=== PATIENT | male | born 1960 | race Caucasian/White ===

== ENCOUNTER 2017-05-12 06:34 | Inpatient (IN) ==
[~2017-05-12 06:34] MED LIST: DEXAMETHASONE 4 MG/ML INJECTION IVP ONE; FAMOTIDINE PB 20 MG/50 ML BAG IV ONE; LIDOCAINE 1% (10mg/ml) 2mL INJ PF SDV ID ONE; METOCLOPRAMIDE 10mg/2ml INJECTION IVP ONE; ONDANSETRON 4 MG/2 ML INJECTION IVP ONE; TRANEXAMIC ACID 1,000 MG in NS 100 ML IV ONE
[2017-05-12 06:49] VITALS: BMI 30.9
[2017-05-12] MEDS ORDERED: TRANEXAMIC ACID 1,000 MG in NS 100 ML IV ONE (07:00)
[2017-05-12] MEDS ORDERED: CEFAZOLIN 1 G INJECTION IVP ONE (07:07)
[2017-05-12] MEDS ORDERED: NOZIN NASAL SWAB NAS ONE ×3 (07:19→12:04)
[2017-05-12] MEDS ORDERED: VANCOMYCIN 1,000 MG INJECTION ONE (07:52)
[2017-05-12] MEDS: LR 1,000 ML IV SCH ×2 (07:57→09:25)
[2017-05-12] MEDS ORDERED: EPINEPHrine PF 0.25 MG, BUPIVACAINE 0.25% PF 30 ML, MORPHINE SULFATE 15 MG, KETOROLAC I... OPSITE ONE (08:00)
--- NOTE | 2017-05-12 08:45 | Anesthesia Preoperative Report ---
Anesthesia Preoperative Record - Date and Time Date: 05/12/17 Preoperative Diagnosis: Lt TKA M17.12 Proposed Procedure: left TKA NPO Since Date: 05/11/17 NPO Since Time: 23:00 Allergies/Adverse Reactions: Allergies Allergy/AdvReac Type Severity Reaction Status Date / Time oxycodone AdvReac Mild Nausea Verified 05/12/17 07:08 - Vital Signs Vital Signs: Temperature 98.3 F 05/12/17 06:49 Pulse Rate 60 05/12/17 07:10 Respiratory Rate 18 05/12/17 06:49 Blood Pressure 155/95 H 05/12/17 06:49 Pulse Oximetry 98 05/12/17 06:49 Height and Weight: Height 5 ft 10 in Weight 97.8 kg Body Mass Index 30.9 - Medications Inpatient Medications: Current Medications Lactated Ringer's (Lactated Ringers) 1,000 mls @ 50 mls/hr IV .Q20H MELLISA Last Admin: 05/12/17 07:57 Dose: 50 mls/hr Isopropyl Alcohol (Nozin Nasal Swab) 1 each IDALMIS O ONE Stop: 05/12/17 11:09 Isopropyl Alcohol (Nozin Nasal Swab) 1 each IDALMIS 0600,1400,2200 MELLISA Sodium Chloride (Iv Flush) 10 - 80 ml IV PRN PRN PRN Reason: Flushing Home Medications: Home Medications Medication Instructions Recorded Confirmed Type Lisinopril 5 mg PO HS #0 05/09/14 05/12/17 History Ibuprofen 200 mg PO Q4H PRN #0 tab 02/12/15 05/12/17 History Lipitor (atorvastatin) 10 mg tablet 5 mg PO HS tab 04/01/17 05/12/17 History Meloxicam [Mobic] 15 mg PO HS 04/01/17 05/11/17 History Acetaminophen [Tylenol] 1 - 2 tab PO Q5HR PRN 05/11/17 05/12/17 History Zolpidem Tartrate [Ambien] 5 mg PO DAILY 05/11/17 05/12/17 History Is Patient on Beta Manuela?: No - Medical History Respiratory: DENIES: Sleep Apnea (high risk STOP/BANG; declines sleep study) Cardiovascular: Reports: Hypertension, High Cholesterol Gastrointestional: Reports: Other (currently elevated liver enzymes, neg hep screen) Other History: DENIES: Anesthesia Reactions - Surgical History GI Surgery/Treatments: Reports: Colonoscopy (polypectomy), Other (soft tissue cystectomy from chest) Musculoskeletal Surgery/Tx: Reports: Knee Arthroscopy (right and left) Anesthesia Reactions: None Hx Family Anesthesia Reaction: No - Social History Smoking Status: Never smoker Hx Chewing Tobacco Use: No Second Hand Exposure: No Substance Use Type: does not use - Pertinent Findings EKG: Sinus Rhythm, First Degree AV Block - Physical Exam Respiratory Exam: Present: lungs clear, bilateral breath sounds equal Cardiovascular Exam: Present: regular rate and rhythm - Airway Assessment Mallampati Score: II TMD: 3 Fingerbreadths Neck Extension: good Overall Assessment: no airway concerns - ASA ASA Score: 2 - Plan Anesthesia: General TIVA, Neuroaxial - Discussion Discussion: Discussed risks/options/alternatives of anesthesia and questions answered. Patient consents. Nursing pain assessment noted. Present for Discussion: spouse Attestation Statement: Prior to the delivery of any anesthetic medication, I examined the patient, developed the plan, obtained the patient's consent and discussed the risk and benefits of the procedure with the patient/guardian. - Additional Information Seen by Anesthesia: Yes
[2017-05-12] MEDS ORDERED: PROPOFOL 500 MG/50 ML VIAL IV ONE (08:52)
[2017-05-12] MEDS ORDERED: VANCOMYCIN 1,000 MG INJECTION IAR ONE (09:11)
[2017-05-12] MEDS ORDERED: MIDAZOLAM 2mg/2ml INJECTION ONE (09:32)
[2017-05-12] MEDS ORDERED: SALINE FLUSH 10ml SYRINGE IV PRN (11:08)
--- NOTE | 2017-05-12 11:09 | Operative Note ---
- Procedure Preoperative Diagnosis: Left knee primary degenerative joint disease Postoperative Diagnosis: Same as preoperative diagnosis. Surgeon: Alpa Boone MD Online Merchandising Coordinator: Dwight Vo Complications: None. Anesthesia: Spinal. Estimated Blood Loss: See Anesthesia Record. Fluids: Please see Anesthesia Record. Desciption of Procedure: Mr. Stone and his left knee were identified and marked in the preoperative holding area. He was brought back to the operating suite after a saphenous nerve block was placed in the preoperative holding area. Spinal anesthetic was administered and he was placed supine on the operating table. The left lower extremity was prepped and draped in my normal sterile fashion. Timeout was performed. The Qwiki robot was used during the surgery. He has a fixed varus deformity. A standard anterior midline incision followed by medial parapatellar arthrotomy was performed. Anterior fat pad and meniscus were removed. The patella was resurfaced to a size 32. Tibial and femoral arrays were placed both within the original incision. Checkpoints were then placed both in the femur and the tibia. The bone was then registered with the Qwiki robot. Osteophytes were removed and gaps were captured both 90 and 0 with correction. Robotic software was used to manipulate components to obtain 19 mm gaps throughout. The Qwiki robotic arm was then used to assist with the bone cuts. Posterior osteophytes and remaining meniscus were removed. Trial components were placed. We used a 5 femur and a 6 tibia with a 9 mm spacer. He remained tight medially even after removal of osteophytes so I added 1 more degree of varus to the tibia as well as 1 of posterior slope. After which he tracked well and was well balanced throughout range of motion. The tibia was then stamped at the proper rotation and then all components were press-fit into position. The knee was ranged one more time to ensure good stability, balance and patellar tracking. The knee was thoroughly irrigated with normal saline. 1 g of vancomycin powder was then placed into the knee joint. The capsulotomy was then closed with #1 Vicryl. I then left my social media assistant to close the subcutaneous tissue with 2-0 Vicryl. Running 4-0 Monocryl will be used in the subcuticular layer. Dermabond will be used on the skin followed by sterile dressing. After drapes are removed patient will be taken to recovery room under the care of anesthesia.
--- NOTE | 2017-05-12 12:00 | XRay Report ---
EXAM: XR knee LT 2V DATE: 05/12/2017 11:32 AM Encounter: Initial INDICATION: postoperative image COMPARISON: Left knee MRI 01/20/2017, left knee radiographs 01/15/2017 TECHNIQUE: AP and lateral views of the knee were obtained. FINDINGS: Bony mineralization is normal. Postoperative changes of left total knee arthroplasty. The hardware components appear appropriately aligned without evidence of acute hardware complication. No periprosthetic fracture seen. No significant joint effusion appreciated allowing for artifact from the external stabilization material. IMPRESSION: Postoperative changes of left total knee arthroplasty without evidence of acute hardware complication or periprosthetic osseous abnormality. .
[2017-05-12] MEDS ORDERED: Oxycodone *IR* 5 MG TABLET PO PRN (12:04)
[2017-05-12] MEDS ORDERED: DiphenhydrAMINE 50 MG/ML INJECTION IVP PRN (12:04)
[2017-05-12] MEDS ORDERED: ONDANSETRON 4 MG/2 ML INJECTION IVP PRN (12:04)
[2017-05-12] MEDS ORDERED: LORazepam 1 MG TABLET PO PRN (12:04)
[2017-05-12] MEDS ORDERED: DiphenhydrAMINE 25 MG CAPSULE PO PRN (12:04)
[2017-05-12] MEDS: NS 1,000 ML IV SCH (12:34)
--- NOTE | 2017-05-12 12:54 | Consult Note ---
<Ashtyn Wheat V - Last Filed: 05/12/17 13:23> Consult Information - Data of Consult Consult date: 05/12/17 Requesting Physician: Veto Boone MD Primary Care Provider: Hattie Leonard MD Family Provider: Hattie Leonard MD - Consult Narrative Reason for consult: Medical magement History of present illness: Mr Stone is seen today in consultation following scheduled left knee placement of care of Dr. Boone. She tolerated the procedure well without any difficulty. Post-operatively patient's reports to Dr. Boone concern for alcohol use and alcohol withdrawal. Also reports that patient's sister last evening and she did not tell him yet. Zen is seen today for initial consultation postoperatively. He is alert and oriented, his is at the bedside. She admits to being a daily alcohol user, however, reports he has not had any alcohol intake for the past 2 weeks preoperatively. He does report that he did have shaking states that he is unsure. He wants to return to drinking as he is already "climbed the hill". He is currently not having pain post-op. Did discuss one-on-one with patient's . She reports patient has used alcohol since age of 12. For the past 15 years he has been a daily alcohol user of approximately 15 "tall boys" a day. He does hold a full-time job at [employer] in [place]. is unsure if he awakes in the morning and drinks alcohol as he wakes up early in drops to work. She does report she has chronic insomnia [facility] Patient Stated Medical History Hypertension GERD Elevated LFTs Hypercholesterolemia Daily alcohol use Surgical History: LT KNEE 2007. RT KNEE 2013 Family History: Family History Mother Hypertension Father Heart defect Heart attack - Social History Smoking status: Never smoker Alcohol intake: current (alcohol use since age 12. Drinks approximately 15 " tall boys" a day) Alcohol intake frequency: 3 or more drinks per day Last drink: days (ago) Household members: spouse Does patient use chewing tobacco?: No Social history: PCP Dr Hattie Leonard- [facility] ([place]) Review of Systems All systems PM: 10-point ROS was reviewed, no additional remarkable complaints except Review of systems: Currently denies review of systems Medications Home Medications Medication Instructions Recorded Confirmed Type Lisinopril 5 mg PO HS #0 05/09/14 05/12/17 History Ibuprofen 200 mg PO Q4H PRN #0 tab 02/12/15 05/12/17 History Lipitor (atorvastatin) 10 mg tablet 5 mg PO HS tab 04/01/17 05/12/17 History Meloxicam [Mobic] 15 mg PO HS 04/01/17 05/11/17 History Acetaminophen [Tylenol] 1 - 2 tab PO Q5HR PRN 05/11/17 05/12/17 History Zolpidem Tartrate [Ambien] 5 mg PO DAILY 05/11/17 05/12/17 History Allergies Allergy/AdvReac Type Severity Reaction Status Date / Time acetaminophen [From Lortab] AdvReac Nausea and Verified 05/12/17 08:52 Vomiting hydrocodone [From Lortab] AdvReac Nausea and Verified 05/12/17 08:52 Vomiting oxycodone [From Percocet] AdvReac Nausea and Verified 05/12/17 08:52 Vomiting Exam Vital Signs: Temperature 96 F L 05/12/17 12:05 Pulse Rate 55 L 05/12/17 12:35 Respiratory Rate 18 05/12/17 12:05 Blood Pressure 155/85 H 05/12/17 12:35 Pulse Oximetry 100 05/12/17 12:35 Height/Weight/BMI: Height 1.78 m Weight 97.8 kg Body Mass Index 30.9 - Constitutional Present: no acute distress, well nourished, well developed - Routine HEENT Exam Eye: Present: EOMI ENT: Present: mucous membranes moist, dentition normal - Routine Respiratory Exam Present: CTA bilaterally. Absent: wheezes - Routine Cardiovascular Exam Present: RRR, S1, S2. Absent: murmur - Routine Abdominal Exam Present: soft, normoactive bowel sounds, non distended. Absent: tenderness - Routine Extremities Exam Present: pulses intact Comments: Left knee- post-op with polar pack intact - Routine Back/Spine/Pelvis Exam Back/Spine: Present: full ROM - Routine Skin Exam Present: dry, warm - Routine Neurological Exam Present: alert, oriented X3, CN II-XII intact - Routine Psychiatric Exam Present: normal affect Assessment and Plan (1) S/P knee replacement Current visit: Yes Status: Acute Assessment and Plan: Impression S/P Left knee replacement Hypertension Daily Alcohol use Hypercholesteremia Concern for situational depression given recent family Plan Post-op and orthopedic orders as per Dr Boone PT/OT for post-op strengthening Patient reports he has not had a alcohol drink for 2 weeks. He does report having some shakes. Will order Serrax 15mg PO every 8 hours. Monitor for withdrawal and seizures. Placed on precautions. Offered anti-depressant or psychiatric consultation however does not feel patient will be open to this. Case discussed with PCP Dr Hattie Leonard in [place]. She will offer follow up and outpatient support as needed. is planning to have family present later today to inform him of his sisters . Further orders and plan of care discussed with attending, Resuscitation Status: Full Code Hospital Course Summary Disclaimer: The visit summary below is not to be considered part of the above Progress Note. Hospital Course: 05/12/17 Impression S/P Left knee replacement Hypertension Daily Alcohol use Hypercholesteremia Concern for situational depression given recent family Plan Post-op and orthopedic orders as per Dr Boone PT/OT for post-op strengthening Patient reports he has not had a alcohol drink for 2 weeks. He does report having some shakes. Will order Serrax 15mg PO every 8 hours. Monitor for withdrawal and seizures. Placed on precautions. Offered anti-depressant or psychiatric consultation however does not feel patient will be open to this. Case discussed with PCP Dr Hattie Leonard in [place]. She will offer follow up and outpatient support as needed. is planning to have family present later today to inform him of his sisters . Further orders and plan of care discussed with attending, <Timothy Wright - Last Filed: 05/12/17 16:19> Consult Information - Data of Consult Requesting Physician: Veto Boone MD Primary Care Provider: Hattie Leonard MD Family Provider: Hattie Leonard MD [facility] Patient Stated Medical History Hypertension Yes Sleep Apnea Yes Other GI Yes: currently elevated liver enzymes, neg hep screen Anesthesia Reactions No Clinic Medical History (Last Reviewed 04/01/17 @ 13:06 by Raghav Ny MA) Elevated liver enzymes (Acute Medical) Obesity (BMI 30-39.9) (Acute Medical) Risk factors for obstructive sleep apnea (Acute Medical) Primary osteoarthritis of left knee (Acute Medical) OA (osteoarthritis) of knee (Acute Medical) Possible occult injury or new meniscal injury High cholesterol (Acute Medical) High blood pressure (Acute Medical) Family History: Family History (Last Reviewed 04/01/17 @ 13:06 by Raghav Ny MA) Mother Hypertension Father Heart defect Heart attack Exam Vital Signs: Temperature 96 F L 05/12/17 12:05 Pulse Rate 53 L 05/12/17 13:50 Respiratory Rate 18 05/12/17 13:40 Blood Pressure 154/90 H 05/12/17 13:50 Pulse Oximetry 99 05/12/17 13:50 Height/Weight/BMI: Height 1.78 m Weight 97.8 kg Body Mass Index 30.9 Assessment and Plan (1) S/P knee replacement Current visit: Yes Status: Acute Assessment and Plan: 05/12/17 Pt seen in conjunction with Ashtyn Wheat APRN. Agree with above documented note, assessment and plan. Pt admitted post left knee replacement. Hx of significant alcohol consumption, approx fifteen 20oz cans of beer daily, drinking since age of [age] years old. He states he quit drinking 2 weeks ago to prepare for the surgery and has gone through the "shakes". His sister apparently yesterday and his did not tell him, not wanting to create more stress with his surgery. She also did not tell Ortho about this prior to the surgery. History, PMH, Meds, ALL, Soc and Surg hx reviewed as above. Exam: CV-rrr, no mur heard. ABD- + bs, nt no mass Lungs - CTA Ext- knee in bandage post op. Assessment S/P L TKA HTN Alcohol dependency/abuse Anxiety Recent family tragedy PLAN Serax 15mg po q 8 hours to help prevent DT's/acute alcohol withdrawl potential. PT/OT consult DT precautions. requested that we inform him of the . We offerred to be present if needed, but explained that it was more appropriate for him to hear this from direct family. She also requested that we sedate him prior to the family meeting. Offered to be present and address anxiety after the meeting if needed. She understands we will not be in house after about 1700 tonight, but that we are still willing to help tomorrow if she is not able to tell him tonight. Timothy Wright MD Hospital Course Summary Disclaimer: The visit summary below is not to be considered part of the above Progress Note. Hospital Course: 05/12/17 16:19 05/12/17 Pt seen in conjunction with Ashtyn Wheat APRN. Agree with above documented note, assessment and plan. Pt admitted post left knee replacement. Hx of significant alcohol consumption, approx fifteen 20oz cans of beer daily, drinking since age of [age] years old. He states he quit drinking 2 weeks ago to prepare for the surgery and has gone through the "shakes". His sister apparently yesterday and his did not tell him, not wanting to create more stress with his surgery. She also did not tell Ortho about this prior to the surgery. History, PMH, Meds, ALL, Soc and Surg hx reviewed as above. Exam: CV-rrr, no mur heard. ABD- + bs, nt no mass Lungs - CTA Ext- knee in bandage post op. Assessment S/P L TKA HTN Alcohol dependency/abuse Anxiety Recent family tragedy PLAN Serax 15mg po q 8 hours to help prevent DT's/acute alcohol withdrawl potential. PT/OT consult DT precautions. requested that we inform him of the . We offerred to be present if needed, but explained that it was more appropriate for him to hear this from direct family. She also requested that we sedate him prior to the family meeting. Offered to be present and address anxiety after the meeting if needed. She understands we will not be in house after about 1700 tonight, but that we are still willing to help tomorrow if she is not able to tell him tonight. Timothy Wright MD
[2017-05-12] MEDS ORDERED: NOZIN NASAL SWAB NAS SCH (14:00)
--- NOTE | 2017-05-12 14:30 | Anesthesia Procedure Note ---
Peripheral Nerve Blockade - Procedure Physician: Veto Boone MD Date: 05/12/17 Surgical Procedure: left robot TKA Discussion: Discussed risks/options/alternatives of anesthesia and questions answered. Patient consents. Nursing pain assessment noted. Block Start: 11:24 Block Stop: 11:26 Blocked Employed: [employer] Indication: Post-Operative Pain Approach: Left Side Confirmed Position: Supine Patient: Consent, Risks/Benefits Discussed, Informed, Post Block Act. Discussed IV Sedation: No (spinal still active) Initial Vital Signs: Temperature 98.3 F 05/12/17 06:49 Temperature Source Oral 05/12/17 06:49 Pulse Rate 70 05/12/17 06:49 Respiratory Rate 18 05/12/17 06:49 Blood Pressure 155/95 H 05/12/17 06:49 Blood Pressure Mean 115 05/12/17 06:49 Blood Pressure Position Sitting 05/12/17 06:49 Pulse Oximetry 98 05/12/17 06:49 Oxygen Delivery Method 05/12/17 06:49 Post Vital Signs: Temperature 96 F L 05/12/17 12:05 Pulse Rate 58 L 05/12/17 13:32 Respiratory Rate 18 05/12/17 13:40 Blood Pressure 148/94 H 05/12/17 12:49 Pulse Oximetry 98 05/12/17 13:40 Initial Pain Pain Score: 0 Post Block Pain Score: 0 Prep: Chlorhexadine/ETOH Ultrasound Used?: Yes - Injectate Ropivacaine (%): 0.5 Ropivacaine (mL): 30 Was Epi 1:200,000 Used?: No Injection: Injection made incrementally with constant monitoring and aspiration every 5 ml (negative)
--- NOTE | 2017-05-12 14:31 | Anesthesia Postoperative Note ---
- Date and Time Date: 05/12/17 Time: 12:20 - Status Patient Participated in Evaluation: Patient Participated in Person Vital Signs: Temperature 96 F L 05/12/17 12:05 Pulse Rate 53 L 05/12/17 13:50 Respiratory Rate 18 05/12/17 13:40 Blood Pressure 154/90 H 05/12/17 13:50 Pulse Oximetry 99 05/12/17 13:50 Respiratory Function: Airway Patent Cardiovascular Function: Regular Pulse Mental Status: Alert and Oriented Pain Intensity: 0 Hydration: IV Infusing Complications During Recover: None Apparent - Follow-Up Instructions Instructions: Per Surgeon
[2017-05-12] MEDS: NOZIN NASAL SWAB NAS SCH ×2 (14:33→22:11)
[2017-05-12] MEDS: OXAZEPAM 15 MG CAPSULE PO SCH (16:56)
[2017-05-12] MEDS: DEXAMETHASONE 20 MG/5 ML INJECTION IVP SCH (16:59)
[2017-05-12] MEDS: CEFAZOLIN 2 G in NS 100 ML IV SCH (16:59)
[2017-05-12] MEDS ORDERED: SENNOSIDES 8.6 MG TABLET PO SCH (21:00)
[2017-05-12] MEDS ORDERED: ATORVASTATIN 10 MG TABLET PO SCH (21:00)
[2017-05-12] MEDS ORDERED: LISINOPRIL 5 MG TABLET PO SCH (21:00)
[2017-05-12] MEDS: DOCUSATE SODIUM 100 MG CAPSULE PO SCH (22:02)
[2017-05-12] MEDS: ASPIRIN *EC* 81 MG TABLET PO SCH (22:02)
[2017-05-12] MEDS: ZOLPIDEM 5 MG TABLET PO SCH (22:04)
[2017-05-13] MEDS: CEFAZOLIN 2 G in NS 100 ML IV SCH (00:36)
[2017-05-13] MEDS: OXAZEPAM 15 MG CAPSULE PO SCH ×2 (00:36→08:48)
[2017-05-13] MEDS: DEXAMETHASONE 20 MG/5 ML INJECTION IVP SCH (00:37)
[2017-05-13] MEDS: NS 1,000 ML IV SCH ×2 (01:05→13:08)
[2017-05-13] MEDS: NOZIN NASAL SWAB NAS SCH ×2 (06:11→13:08)
[2017-05-13 07:31] VITALS: RESP 18
--- NOTE | 2017-05-13 08:08 | Orthopedic Progress Note ---
Date: Subjective/Severity of Illness: Sulaiman is sitting up in his chair this AM. He appears in good spirits. Denies much pain and hasn't taken anything overnight for pain. Nursing reports he was notified of his sister's passing last night. He has been up with good tolerance. No CP, cough, SOA or other concerns this AM. Orthopedic Objective PO Vital signs: Temperature 97.8 F 05/13/17 07:30 Pulse Rate 64 05/13/17 07:30 Respiratory Rate 18 05/13/17 07:30 Blood Pressure 138/72 05/13/17 07:30 Pulse Oximetry 96 05/13/17 07:30 Height and Weight: Height 5 ft 10 in Weight 222 lb 14.197 oz Body Mass Index 30.9 - Constitutional General Appearance: Present: alert, cooperative, no acute distress - Respiratory Exam Present: non-labored - Extremities Exam Extremities: Present: pulses intact. Absent: calf tenderness - Surgical Site Incision: Mepilex dressing intact, no drainage - Integumentary Exam Present: pink, warm, dry - Neurological Exam Present: no deficits - Psychiatric Exam Present: alert, normal affect - Labs Result Diagrams: 05/13/17 04:26 05/13/17 04:26 Abnormal lab results 05/13/17 05/13/17 Range/Units 04:26 04:26 Hgb 12.7 L (13.5-17.5) GM/DL Hct 38.1 L (41-53) % Carbon Dioxide 20 L (22-30) MEQ/L Creatinine 0.7 L (0.8-1.5) MG/DL Glucose 236 H (75-110) MG/DL H & H 05/13/17 Range/Units 04:26 Hgb 12.7 L (13.5-17.5) GM/DL Hct 38.1 L (41-53) % Orthopedic Assessment and Plan (1) Primary osteoarthritis of left knee Status: Acute Assessment and Plan: Current anti-coagulation protocol x 6 weeks for VTE prophylaxis. SCD's for added coverage. PT/OT services to improve independent function. Nrusing notes state that pts is requesting that Sulaiman be placed on depression / anxiety medication. Discharge Planning per Case Management. - Anticoagulation Therapy Anticoagulation: ASA 81 mg PO BID x6 weeks Hospital Course Summary Disclaimer: The visit summary below is not to be considered part of the above Progress Note. Hospital Course: 05/12/17 16:19 05/12/17 Pt seen in conjunction with Ashtyn Wheat APRN. Agree with above documented note, assessment and plan. Pt admitted post left knee replacement. Hx of significant alcohol consumption, approx fifteen 20oz cans of beer daily, drinking since age of [age] years old. He states he quit drinking 2 weeks ago to prepare for the surgery and has gone through the "shakes". His sister apparently yesterday and his did not tell him, not wanting to create more stress with his surgery. She also did not tell Ortho about this prior to the surgery. History, PMH, Meds, ALL, Soc and Surg hx reviewed as above. Exam: CV-rrr, no mur heard. ABD- + bs, nt no mass Lungs - CTA Ext- knee in bandage post op. Assessment S/P L TKA HTN Alcohol dependency/abuse Anxiety Recent family tragedy PLAN Serax 15mg po q 8 hours to help prevent DT's/acute alcohol withdrawl potential. PT/OT consult DT precautions. requested that we inform him of the . We offerred to be present if needed, but explained that it was more appropriate for him to hear this from direct family. She also requested that we sedate him prior to the family meeting. Offered to be present and address anxiety after the meeting if needed. She understands we will not be in house after about 1700 tonight, but that we are still willing to help tomorrow if she is not able to tell him tonight. Timothy Wright MD
[2017-05-13] MEDS: ZOLPIDEM 5 MG TABLET PO SCH (08:41)
[2017-05-13] MEDS: ASPIRIN *EC* 81 MG TABLET PO SCH (08:48)
[2017-05-13] MEDS: DOCUSATE SODIUM 100 MG CAPSULE PO SCH (08:48)
[2017-05-13] MEDS ORDERED: POLYETHYL GLYCOL 3350 17gm PACKET PO SCH (09:00)
--- NOTE | 2017-05-13 10:41 | Progress Note ---
- Date 05/13/17 Subjective: Patient is comfortable. Using icepack. Pain is well-controlled. He has been up walking with a cane. Looking forward to getting home starting physical therapy. Objective Vital signs: Temperature 97.8 F 05/13/17 07:30 Pulse Rate 71 05/13/17 08:00 Respiratory Rate 18 05/13/17 07:30 Blood Pressure 138/72 05/13/17 07:30 Pulse Oximetry 96 05/13/17 07:30 Rhythm: Normal Sinus Rhythm Height/Weight/BMI: Height 1.78 m Weight 101.1 kg Body Mass Index 30.9 - Constitutional Present: well nourished, well developed - Routine Respiratory Exam Present: CTA bilaterally. Absent: wheezes - Routine Cardiovascular Exam Present: RRR. Absent: murmur - Routine Abdominal Exam Present: soft, normoactive bowel sounds, non distended. Absent: tenderness - Routine Extremities Exam Present: normal capillary refill - Routine Back/Spine/Pelvis Exam Back/Spine: Present: full ROM - Routine Neurological Exam Present: alert, oriented X3, CN II-XII intact Results - Labs CBC & Chem 7: 05/13/17 04:26 05/13/17 04:26 Assessment and Plan (1) S/P knee replacement Current visit: Yes Status: Acute Assessment and Plan: 05/13/17 Timothy Wright MDAssessment S/P L TKA HTN Alcohol dependency/abuse Anxiety Recent family tragedy PLAN Serax 15mg po q 8 hours to help prevent DT's/acute alcohol withdrawl potential. Has worked and he will be d/c with some. PT/OT consult DT precautions. Family meeting last night went well. Pt comfortable and calm. Wants to continue with serax. Timothy Wright Md 05/13/17 GI Prophylaxis: [place] [facility] Course Summary Disclaimer: The visit summary below is not to be considered part of the above Progress Note. Hospital Course: 05/12/17 16:19 05/12/17 Pt seen in conjunction with Ashtyn Wheat APRN. Agree with above documented note, assessment and plan. Pt admitted post left knee replacement. Hx of significant alcohol consumption, approx fifteen 20oz cans of beer daily, drinking since age of [age] years old. He states he quit drinking 2 weeks ago to prepare for the surgery and has gone through the "shakes". His sister apparently yesterday and his did not tell him, not wanting to create more stress with his surgery. She also did not tell Ortho about this prior to the surgery. History, PMH, Meds, ALL, Soc and Surg hx reviewed as above. Exam: CV-rrr, no mur heard. ABD- + bs, nt no mass Lungs - CTA Ext- knee in bandage post op. Assessment S/P L TKA HTN Alcohol dependency/abuse Anxiety Recent family tragedy PLAN Serax 15mg po q 8 hours to help prevent DT's/acute alcohol withdrawl potential. PT/OT consult DT precautions. requested that we inform him of the . We offerred to be present if needed, but explained that it was more appropriate for him to hear this from direct family. She also requested that we sedate him prior to the family meeting. Offered to be present and address anxiety after the meeting if needed. She understands we will not be in house after about 1700 tonight, but that we are still willing to help tomorrow if she is not able to tell him tonight. Timothy Wright MD 05/13/17 10:41
[2017-05-13] MEDS ORDERED: SENNOSIDES 8.6 MG TABLET PO PRN (11:24)
[2017-05-13 11:49] VITALS: BP 166/99; PULSE 60; TEMP 97; O2SAT 97
--- NOTE | 2017-05-13 13:39 | Discharge Summary ---
Orthopedic Discharge Info Date of admission: 05/12/17 06:34 Primary care physician: Hattie Leonard MD Attending Physician: Veto Boone MD Consults: 05/12/17 07:06 Consult to Anesthesiology [CONS] Routine Reason For Exam: Preoperative Assessment 05/12/17 12:04 Case Management Consult [CONS] Routine Reason For Exam: Discharge Planning DME-Walker [CONS] Routine Height: 5 ft 10 in Weight: 215 lb 9.793 oz Total Joint Outpatient Therapy [CONS] Routine Comment: Remove dressing in 2 weeks 05/12/17 12:54 Physician Consult [CONS] Routine Consulting Provider: Timothy Wright Reason For Exam: medical interventions Ordering Provider has Notified Health Social Work Professor: Yes - Discharge Diagnosis (1) Primary osteoarthritis of left knee Status: Acute - Procedures Procedures: Left TKA - Laboratory Result Diagrams: 05/13/17 04:26 05/13/17 04:26 Laboratory: Abnormal lab results 05/13/17 05/13/17 Range/Units 04:26 04:26 Hgb 12.7 L (13.5-17.5) GM/DL Hct 38.1 L (41-53) % Carbon Dioxide 20 L (22-30) MEQ/L Creatinine 0.7 L (0.8-1.5) MG/DL Glucose 236 H (75-110) MG/DL H & H 05/13/17 Range/Units 04:26 Hgb 12.7 L (13.5-17.5) GM/DL Hct 38.1 L (41-53) % Orthopedic Discharge HPI - HPI Comments This patient was admitted for elective surgical tx of end stage degenerative joint disease that failed to respond to conservative treatment. Further details of this is found in the admission H&P. Orthopedic Hospital Course Hospital course: 05/13/17 13:34 After appropriate preoperative clearance and signing of operative consent, the patient was given IV antibiotics, according to orthopedic protocol. The patient was taken to the operating room and underwent elective joint arthroplasty. Following surgery, antibiotics were discontinued less than 24 hours according to joint protocol. Appropriate anticoagulants were initiated and SCDs added for DVT prevention. The dressing was clean, dry, and intact. Pain control was obtained via multimodal approach. Bowel motivation addressed with scheduled and PRN medications. Early mobilization was initiated through PT services. Discharge arrangements made by a collaborative effort between the patient and Case Management. Dr. Wright was consulted with the hospital service and started the patient on Serax for alcohol withdraw. I discussed the discharge with him post op day one and he agreed the patient was safe to discharge. Dr. Wright did provide a Serax RX on discharge. Follow-up is scheduled in 2-3 weeks. Discharge instructions given by orthopedic providers and nursing staff at discharge. Discharge condition was good. Ongoing care required?: No Discharge Plan - Med Rec/Dispo Referrals/Follow Up: Dwight Vo PA [Physician Kitchen Assistant] - 06/03/17 1:30 pm Additional Instructions: [facility] ON 05/15/2017 AT 10:45AM FOR PHYSICAL THERAPY EVAL. PHONE [phone], OPTION 3 Prescriptions: New Aspirin *EC* [Ecotrin] 81 mg PO BID tablet Oxycodone *IR* [Roxicodone *Ir*] 5 - 15 mg PO Q3H PRN #0 tablet PRN Reason: Breakthrough Pain PEG 3350 17gm PACKET [Miralax] 17 gm PO DAILY packet Oxazepam [Serax] 15 mg PO Q8HR capsule Continue Zolpidem Tartrate [Ambien] 5 mg PO DAILY Meloxicam [Mobic] 15 mg PO HS #60 tab Lisinopril 5 mg PO HS #0 Lipitor (atorvastatin) 10 mg tablet 5 mg PO HS tab Discontinued Ibuprofen 200 mg PO Q4H PRN #0 tab PRN Reason: Pain Acetaminophen [Tylenol] 1 - 2 tab PO Q5HR PRN PRN Reason: Pain - Disposition 01 Discharged Home, Self-Care - Dismissal Complete Discharge Instructions are:: Complete
[2017-05-13] MEDS ORDERED: MELOXICAM 15 MG TABLET PO SCH (21:00)
[2017-05-14] MEDS ORDERED: BISACODYL 10 MG SUPPOSITORY RECTALLY SCH (20:00)
== END 2017-05-13 14:15 | disposition home or self-care (01) | DRG 470 ==
LOC: MED 06:34
PROVIDERS: ADMIT Orthopaedic Surgery; ATTEND Orthopaedic Surgery